=== PATIENT | female | born 1965 | race Caucasian/White ===

== ENCOUNTER 2016-07-16 17:57 | Inpatient (IN) | payer MEDICAID ==
[~2016-07-16] VITALS: Ht 170.2 cm; Wt 102.1 kg
[~2016-07-16 17:57] MED LIST: ASEN5TAB6 SL; HYDR25TA PO; PANT40TA25 PO
[2016-07-16 19:16] LABS: BASOPHILS % (AUTO) 0.3 % (0.0-2.0); EOSINOPHILS % (AUTO) 0.6 % (1.0-6.0); HEMATOCRIT 45.4 % (36-46); LYMPHOCYTES # (AUTO) 1.6 K/uL (1.0-4.8); LYMPHOCYTES % (AUTO) 22.2 % (22.0-44.0); MEAN CORPUSCULAR HEMOGLOBIN 30.2 pg (26.0-34.0); MEAN CORPUSCULAR VOLUME 92 fL (80-100); MONOCYTES # (AUTO) 0.3 K/uL (0.1-1.0); MONOCYTES % (AUTO) 3.7 % (2.0-9.0); NEUTROPHILS # (AUTO) 5.1 K/uL (1.8-7.7); NEUTROPHILS % (AUTO) 73.2 % (40.0-70.0); PLATELET COUNT (AUTO) 284 K/uL (150-450); RED BLOOD CELL COUNT(AUTO) 4.96 MIL/uL (4.00-5.20)
[2016-07-16 19:37] LABS: ALANINE AMINOTRANSFERASE 25 U/L (12-78); ALBUMIN 4.2 g/dL (3.4-5.0); ANION GAP 14 mmol/L (8-16); ASPARTATE AMINOTRANSFERASE 13 U/L (15-37); BILIRUBIN,TOTAL 0.4 mg/dL (0.1-1.0); CALCIUM, TOTAL 9.5 mg/dL (8.8-10.5); CARBON DIOXIDE 24 mmol/L (22-29); CHLORIDE 104 mmol/L (98-107); CREATININE 1.07 mg/dL (0.60-1.30); GLOMERULAR FILTR. RATE CALC 54 mL/min (>60); POTASSIUM 3.5 mmol/L (3.5-5.1); SODIUM SERUM 142 mmol/L (136-145); UREA NITROGEN, BLOOD 19 mg/dL (7-18)
[2016-07-16] MEDS ORDERED: LORazepam 2 MG TABLET PO ONE (20:15)
[2016-07-16] MEDS ORDERED: HALOPERIDOL 5 MG TABLET PO ONE (20:15)
[2016-07-16] MEDS ORDERED: DiphenhydrAMINE HCL 25 MG CAPSULE PO ONE (20:15)
[2016-07-16 23:00] VITALS: BP 140/67
[2016-07-16] MEDS ORDERED: ZOLPIDEM TARTRATE 10 MG TABLET PO PRN (23:30)
[2016-07-16] MEDS ORDERED: HALOPERIDOL 5 MG TABLET PO PRN (23:30)
[2016-07-17 01:34] VITALS: BP 110/90
[2016-07-17 01:51] LABS: ADD UA MICROSCOPIC YES; APPEARANCE,URINE TURBID (CLEAR); GLUCOSE, URINE (UA) 100 mg/dL (NEGATIVE); KETONES,URINE NEGATIVE (NEGATIVE); LEUKOCYTE ESTERASE ,URINE TRACE (NEGATIVE); OCCULT BLOOD,URINE NEGATIVE (NEGATIVE); PROTEIN,URINE TRACE (NEGATIVE)
[2016-07-17 02:42] LABS: RBC,URINE 0-2 /HPF (0-2)
[2016-07-17 02:43] LABS: AMORPHOUS SEDIMENT,UR Moderate /LPF (None Seen); WBC,URINE 0-2 /HPF (0-5)
[2016-07-17 09:17] VITALS: BP 144/66
[2016-07-17 17:13] VITALS: BP 137/90
[2016-07-17] MEDS: RisperiDONE 1 MG TABLET PO SCH (18:23)
[2016-07-17] MEDS ORDERED: ALBUTEROL SULFATE HFA 90 MCG/PUFF 8 GM INHALER IH PRN (23:00)
[2016-07-17] MEDS ORDERED: ACETAMINOPHEN 325 MG TABLET PO PRN (23:00)
[2016-07-18 06:54] LABS: HEMOGLOBIN A1C 5.6 % (4.5-6.2)
[2016-07-18 07:01] LABS: CHOL/HDL RATIO 5.7 (3.9-5.7); THYROID STIMULATING HORMONE 1.49 uIU/mL (0.36-3.74)
[2016-07-18] MEDS: CIPROFLOXACIN HCL 500 MG TABLET PO SCH ×2 (08:57→16:19)
[2016-07-18] MEDS: RisperiDONE 1 MG TABLET PO SCH ×2 (08:58→16:20)
[2016-07-18] MEDS: OMEPRAZOLE 20 MG CAPSULE PO SCH (08:58)
[2016-07-18 09:49] VITALS: BP 147/85
[2016-07-18] MEDS: LORazepam 2 MG TABLET PO PRN (11:15)
[2016-07-18 16:19] VITALS: BP 131/82
[2016-07-18 17:19] VITALS: BP 129/78
[2016-07-18 21:52] VITALS: BP 137/81
[2016-07-19] MEDS: DICYCLOMINE HCL 20 MG TABLET PO SCH ×2 (08:43→12:30)
[2016-07-19] MEDS: CIPROFLOXACIN HCL 500 MG TABLET PO SCH (08:43)
[2016-07-19] MEDS: OMEPRAZOLE 20 MG CAPSULE PO SCH ×2 (08:44→09:00)
[2016-07-19] MEDS: RisperiDONE 1 MG TABLET PO SCH (08:44)
[2016-07-19 08:49] VITALS: BP 130/83
[2016-07-19] MEDS ORDERED: PANTOPRAZOLE SODIUM 40 MG DR TABLET PO SCH (09:00)
[2016-07-19] MEDS ORDERED: LISINOPRIL 20 MG TABLET PO SCH (09:00)
[2016-07-19] MEDS ORDERED: HYDROCHLOROTHIAZIDE 25 MG TABLET PO SCH (09:00)
[2016-07-19] MEDS: LORazepam 2 MG TABLET PO PRN (09:20)
[2016-07-19] MEDS ORDERED: LISI-662 PO (10:39)
[2016-07-19] MEDS ORDERED: DICY20 PO (10:39)
[2016-07-19] MEDS ORDERED: CIPR-278 PO (10:39)
[2016-07-19] MEDS ORDERED: RISP1 PO (10:40)
[2016-07-19] MEDS ORDERED: OMEP20 PO (10:43)
== END 2016-07-19 12:45 | disposition home or self-care (01) | DRG 753 ==
LOC: EMS 18:01 → 3EI 20:30
PROVIDERS: ADMIT Psychiatry & Neurology Psychiatry; ATTEND Psychiatry & Neurology Psychiatry
DX: F31.9 Bipolar disorder, unspecified (principal); N39.0 Urinary tract infection, site not specified; I10 Essential (primary) hypertension; K21.9 Gastro-esophageal reflux disease without esophagitis; E78.5 Hyperlipidemia, unspecified; J45.909 Unspecified asthma, uncomplicated; M79.7 Fibromyalgia; F10.10 Alcohol abuse, uncomplicated; F19.10 Other psychoactive substance abuse, uncomplicated; F22 Delusional disorders; F43.10 Post-traumatic stress disorder, unspecified; G47.30 Sleep apnea, unspecified; F12.90 Cannabis use, unspecified, uncomplicated; Z53.29 Procedure and treatment not carried out because of patient's decision for other reasons; Z71.51 Drug abuse counseling and surveillance of drug abuser; Z71.41 Alcohol abuse counseling and surveillance of alcoholic; Z88.8 Allergy status to other drugs, medicaments and biological substances; Z90.49 Acquired absence of other specified parts of digestive tract
CPT/HCPCS: 83036; 84443; 99285; G0480

== ENCOUNTER 2016-12-21 12:41 | Inpatient (IN) | payer MEDICAID, OTHER ==
[~2016-12-21] VITALS: Ht 170.2 cm; Wt 114.7 kg
[~2016-12-21 12:41] MED LIST changes: -ASEN5TAB6 SL; +CIPR-278 PO; +DICY20 PO; +LISI-662 PO; +OMEP20 PO; -PANT40TA25 PO; +RISP1 PO
[2016-12-21] MEDS ORDERED: ASEN5TAB6 SL (12:48)
[2016-12-21] MEDS ORDERED: DiphenhydrAMINE HCL 25 MG CAPSULE PO ONE (13:15)
[2016-12-21] MEDS ORDERED: HALOPERIDOL 5 MG TABLET PO ONE (13:15)
[2016-12-21] MEDS ORDERED: LORazepam 2 MG TABLET PO ONE (13:15)
[2016-12-21] MEDS ORDERED: ZOLPIDEM TARTRATE 10 MG TABLET PO PRN (14:15)
[2016-12-21] MEDS ORDERED: DiphenhydrAMINE HCL 50 MG/ML VIAL IM ONE (16:00)
[2016-12-21] MEDS ORDERED: LORazepam 2 MG/ML VIAL IM ONE (16:00)
[2016-12-21] MEDS ORDERED: HALOPERIDOL LACTATE 5 MG/ML VIAL IM ONE (16:00)
[2016-12-21 16:02] LABS: BASOPHILS % (AUTO) 1.2 % (0.0-2.0); EOSINOPHILS % (AUTO) 1.2 % (1.0-6.0); HEMATOCRIT 40.2 % (36-46); HEMOGLOBIN 13.9 g/dL (12.0-16.0); LYMPHOCYTES # (AUTO) 2.6 K/uL (1.0-4.8); LYMPHOCYTES % (AUTO) 35.7 % (22.0-44.0); MEAN CORPUSCULAR HEMOGLOBIN 31.7 pg (26.0-34.0); MEAN CORPUSCULAR HGB CONC 34.7 G/dL (31.0-37.0); MEAN CORPUSCULAR VOLUME 92 fL (80-100); MONOCYTES # (AUTO) 0.4 K/uL (0.1-1.0); NEUTROPHILS # (AUTO) 4.1 K/uL (1.8-7.7); NEUTROPHILS % (AUTO) 56.9 % (40.0-70.0); PLATELET COUNT (AUTO) 278 K/uL (150-450); RED BLOOD CELL COUNT(AUTO) 4.39 MIL/uL (4.00-5.20); RED CELL DISTRIBUTION WIDTH 13.3 % (11.5-14.5); WHITE BLOOD COUNT (AUTO) 7.2 K/uL (4.5-11.0)
[2016-12-21 16:04] LABS: ANION GAP 10 mmol/L (8-16); CALCIUM, TOTAL 9.3 mg/dL (8.8-10.5); CARBON DIOXIDE 25 mmol/L (22-29); CHLORIDE 106 mmol/L (98-107); CREATININE 1.18 mg/dL (0.60-1.30); GLOMERULAR FILTR. RATE CALC 48 mL/min (>60); POTASSIUM 4.1 mmol/L (3.5-5.1); SODIUM SERUM 141 mmol/L (136-145); UREA NITROGEN, BLOOD 28 mg/dL (7-18)
[2016-12-21 16:11] LABS: ALANINE AMINOTRANSFERASE 24 U/L (12-78); ALBUMIN 4.4 g/dL (3.4-5.0); ASPARTATE AMINOTRANSFERASE 16 U/L (15-37); BILIRUBIN,TOTAL 0.2 mg/dL (0.1-1.0); TOTAL PROTEIN, SERUM 7.6 g/dL (6.4-8.2)
[2016-12-22 04:37] LABS: CHOL/HDL RATIO 5.4 (3.9-5.7)
[2016-12-22] MEDS: LORazepam 2 MG TABLET PO PRN (20:58)
[2016-12-22] MEDS: HALOPERIDOL 5 MG TABLET PO PRN (20:58)
[2016-12-22 21:40] VITALS: BP 147/98
[2016-12-23] MEDS: GEMFIBROZIL 600 MG TABLET PO SCH ×2 (06:45→17:00)
[2016-12-23] MEDS: LISINOPRIL 20 MG TABLET PO SCH (08:50)
[2016-12-23] MEDS: HYDROCHLOROTHIAZIDE 25 MG TABLET PO SCH (08:51)
[2016-12-23] MEDS: DICYCLOMINE HCL 20 MG TABLET PO SCH ×4 (08:51→21:00)
[2016-12-23] MEDS: OMEPRAZOLE 20 MG CAPSULE PO SCH (08:52)
[2016-12-23 10:39] VITALS: BP 147/88
[2016-12-23] MEDS: RisperiDONE 1 MG TABLET PO SCH (18:12)
[2016-12-24] MEDS ORDERED: PNEUMOCOCCAL VACCINE POLYVALENT 0.5 ML VIAL [PPSV23] IM ONE (00:30)
[2016-12-24] MEDS: GEMFIBROZIL 600 MG TABLET PO SCH ×2 (07:04→17:28)
[2016-12-24 08:00] VITALS: BP 139/87
[2016-12-24] MEDS: LISINOPRIL 20 MG TABLET PO SCH (10:01)
[2016-12-24] MEDS: HYDROCHLOROTHIAZIDE 25 MG TABLET PO SCH (10:01)
[2016-12-24] MEDS: OMEPRAZOLE 20 MG CAPSULE PO SCH (10:01)
[2016-12-24] MEDS: RisperiDONE 1 MG TABLET PO SCH ×2 (10:01→17:28)
[2016-12-24] MEDS: DICYCLOMINE HCL 20 MG TABLET PO SCH ×4 (10:02→20:18)
[2016-12-24] MEDS ORDERED: ACETAMINOPHEN 325 MG TABLET PO PRN (12:00)
[2016-12-24] MEDS: HALOPERIDOL 5 MG TABLET PO PRN ×2 (12:03→18:55)
[2016-12-24] MEDS: LORazepam 2 MG TABLET PO PRN ×2 (12:04→18:55)
[2016-12-24 16:38] VITALS: BP 134/92
[2016-12-25] MEDS: GEMFIBROZIL 600 MG TABLET PO SCH ×2 (06:57→16:03)
[2016-12-25 08:14] VITALS: BP 133/93
[2016-12-25] MEDS: DICYCLOMINE HCL 20 MG TABLET PO SCH ×4 (08:45→20:57)
[2016-12-25] MEDS: RisperiDONE 1 MG TABLET PO SCH ×2 (08:45→16:02)
[2016-12-25] MEDS: OMEPRAZOLE 20 MG CAPSULE PO SCH (08:45)
[2016-12-25] MEDS: LISINOPRIL 20 MG TABLET PO SCH (08:45)
[2016-12-25] MEDS: HYDROCHLOROTHIAZIDE 25 MG TABLET PO SCH (08:46)
[2016-12-25] MEDS: LORazepam 2 MG TABLET PO PRN (16:00)
[2016-12-25 16:03] VITALS: BP 115/81
[2016-12-26] MEDS: GEMFIBROZIL 600 MG TABLET PO SCH (06:41)
[2016-12-26] MEDS: OMEPRAZOLE 20 MG CAPSULE PO SCH (08:05)
[2016-12-26] MEDS: LISINOPRIL 20 MG TABLET PO SCH (08:05)
[2016-12-26] MEDS: DICYCLOMINE HCL 20 MG TABLET PO SCH ×2 (08:05→12:23)
[2016-12-26] MEDS: HYDROCHLOROTHIAZIDE 25 MG TABLET PO SCH (08:05)
[2016-12-26] MEDS: RisperiDONE 1 MG TABLET PO SCH (08:05)
[2016-12-26 08:08] VITALS: BP 135/93
[2016-12-26] MEDS ORDERED: GEMF600T3 PO (11:38)
== END 2016-12-26 13:35 | disposition left against medical advice (07) | DRG 750 ==
LOC: EEVIPCON 12:43 → EMS 12:43 → 3EC 12-22 19:56 → EMS 12-22 21:27
PROVIDERS: ADMIT Psychiatry & Neurology Child & Adolescent Psychiatry; ATTEND Psychiatry & Neurology Child & Adolescent Psychiatry
DX: F25.0 Schizoaffective disorder, bipolar type (principal); N17.9 Acute kidney failure, unspecified; R45.850 Homicidal ideations; Z91.19 Patient's noncompliance with other medical treatment and regimen; I10 Essential (primary) hypertension; F43.10 Post-traumatic stress disorder, unspecified; G47.33 Obstructive sleep apnea (adult) (pediatric); J45.909 Unspecified asthma, uncomplicated; K21.9 Gastro-esophageal reflux disease without esophagitis; M79.7 Fibromyalgia; Z87.440 Personal history of urinary (tract) infections; Z88.8 Allergy status to other drugs, medicaments and biological substances; Z28.21 Immunization not carried out because of patient refusal
CPT/HCPCS: 94660; 99285; G0480

== ENCOUNTER 2017-10-20 16:08 | Inpatient (IN) | payer MEDICAID, OTHER ==
[~2017-10-20] VITALS: Ht 170.2 cm; Wt 261.5 kg
[~2017-10-20 16:08] MED LIST changes: -CIPR-278 PO; +GEMF600T3 PO
[2017-10-20] MEDS ORDERED: ASEN5TAB6 SL (16:12)
[2017-10-20] MEDS ORDERED: OMEP10 PO (16:12)
[2017-10-20 16:23] LABS: GLUCOSE,POINT OF CARE 140 MG/DL (70-110)
[2017-10-20 16:38] LABS: BASOPHILS % (AUTO) 0.6 % (0.0-2.0); EOSINOPHILS % (AUTO) 0.3 % (1.0-6.0); HEMATOCRIT 46.5 % (36-46); HEMOGLOBIN 15.7 g/dL (12.0-16.0); LYMPHOCYTES # (AUTO) 1.5 K/uL (1.0-4.8); LYMPHOCYTES % (AUTO) 18.5 % (22.0-44.0); MEAN CORPUSCULAR HEMOGLOBIN 30.7 pg (26.0-34.0); MEAN CORPUSCULAR HGB CONC 33.9 G/dL (31.0-37.0); MEAN CORPUSCULAR VOLUME 91 fL (80-100); MONOCYTES # (AUTO) 0.2 K/uL (0.1-1.0); NEUTROPHILS # (AUTO) 6.2 K/uL (1.8-7.7); NEUTROPHILS % (AUTO) 77.6 % (40.0-70.0); PLATELET COUNT (AUTO) 370 K/uL (150-450); RED BLOOD CELL COUNT(AUTO) 5.12 MIL/uL (4.00-5.20); RED CELL DISTRIBUTION WIDTH 13.9 % (11.5-14.5)
[2017-10-20 16:52] LABS: ANION GAP 14 mmol/L (8-16); CALCIUM, TOTAL 9.8 mg/dL (8.8-10.5); CARBON DIOXIDE 22 mmol/L (22-29); CHLORIDE 101 mmol/L (98-107); CREATININE 1.29 mg/dL (0.60-1.30); GLOMERULAR FILTR. RATE CALC 43 mL/min (>60); GLUCOSE,RANDOM 200 mg/dL (70-110); POTASSIUM 3.6 mmol/L (3.5-5.1); SODIUM SERUM 137 mmol/L (136-145); UREA NITROGEN, BLOOD 21 mg/dL (7-18)
[2017-10-20 16:58] LABS: ALANINE AMINOTRANSFERASE 41 U/L (12-78); ALBUMIN 4.5 g/dL (3.4-5.0); ALKALINE PHOSPHATASE 94 U/L (46-116); ASPARTATE AMINOTRANSFERASE 22 U/L (15-37); BILIRUBIN,TOTAL 0.4 mg/dL (0.1-1.0); TOTAL PROTEIN, SERUM 8.5 g/dL (6.4-8.2)
[2017-10-20] MEDS ORDERED: HALOPERIDOL 5 MG TABLET PO PRN (17:45)
[2017-10-20] MEDS ORDERED: ZOLPIDEM TARTRATE 10 MG TABLET PO PRN (17:45)
[2017-10-20] MEDS ORDERED: ACETAMINOPHEN 325 MG TABLET PO ONE (18:15)
[2017-10-20 18:19] LABS: APPEARANCE,URINE CLEAR (CLEAR); BILIRUBIN,URINE NEGATIVE (NEGATIVE); GLUCOSE, URINE (UA) NEGATIVE (NEGATIVE); KETONES,URINE NEGATIVE (NEGATIVE); LEUKOCYTE ESTERASE ,URINE NEGATIVE (NEGATIVE); NITRATE,URINE NEGATIVE (NEGATIVE); OCCULT BLOOD,URINE NEGATIVE (NEGATIVE); PROTEIN,URINE POS 1+ (NEGATIVE); UROBILINOGEN,URINE 0.2 mg/dL (<=1.0)
[2017-10-20 18:22] LABS: AMPHET/METH SCREEN,URINE POSITIVE (NEGATIVE); BARBITURATE SCREEN, URINE NEGATIVE (NEGATIVE); BENZODIAZEPINES SCREEN,URINE NEGATIVE (NEGATIVE); CANNABINOID SCREEN,URINE POSITIVE (NEGATIVE); COCAINE SCREEN,URINE NEGATIVE (NEGATIVE); METHADONE SCREEN, URINE NEGATIVE (NEGATIVE); OPIATE SCREEN,URINE NEGATIVE (NEGATIVE)
[2017-10-20 18:24] LABS: PHENCYCLIDINE SCREEN,URINE NEGATIVE (NEGATIVE)
[2017-10-20 18:29] LABS: BACTERIA,URINE Few /HPF (None Seen); RBC,URINE 0-2 /HPF (0-2); SQUAMOUS EPITHELIAL CELL,UR Moderate /LPF (None Seen)
[2017-10-20 18:30] LABS: HYALINE CASTS, URINE 0-2 /LPF (None Seen)
[2017-10-20] MEDS ORDERED: CEPHALEXIN MONOHYDRATE 500 MG CAPSULE PO ONE (19:00)
[2017-10-20] MEDS: LORazepam 2 MG TABLET PO PRN (19:24)
[2017-10-20] MEDS: ASENAPINE 5 MG SUBLINGUAL TABLET SL SCH (21:21)
[2017-10-21 08:47] LABS: HEMOGLOBIN A1C 5.6 % (4.5-6.2)
[2017-10-21 09:02] LABS: CHOL/HDL RATIO 6.2 (3.9-5.7); FREE T4 (FREE THYROXINE) 0.82 ng/dL (0.76-1.46); THYROID STIMULATING HORMONE 1.81 uIU/mL (0.36-3.74)
[2017-10-21] MEDS: ASENAPINE 5 MG SUBLINGUAL TABLET SL SCH ×2 (09:09→21:10)
[2017-10-21] MEDS: LORazepam 2 MG TABLET PO PRN (14:22)
[2017-10-21] MEDS ORDERED: MAG HYDROX/AL HYDROX/SIMETH ES 30 ML SUSPENSION UDCUP PO PRN (15:15)
[2017-10-21] MEDS ORDERED: PETROLATUM,WHITE 71 GM JELLY TP PRN (15:15)
[2017-10-21] MEDS ORDERED: ONDANSETRON HCL 4 MG TABLET PO PRN (15:15)
[2017-10-21] MEDS ORDERED: CloNIDine HCL 0.1 MG TABLET PO PRN (15:15)
[2017-10-21] MEDS ORDERED: ALBUTEROL SULFATE HFA 90 MCG/PUFF 8 GM INHALER IH PRN (15:15)
[2017-10-21] MEDS ORDERED: ACETAMINOPHEN 325 MG TABLET PO PRN (15:15)
[2017-10-21] MEDS ORDERED: MAGNESIUM HYDROXIDE SUSPENSION 30 ML UDCUP PO PRN (15:15)
[2017-10-21] MEDS ORDERED: LOPERAMIDE HCL 2 MG CAPSULE PO PRN (15:15)
[2017-10-21] MEDS ORDERED: DOCUSATE SODIUM 100 MG CAPSULE PO PRN (15:15)
[2017-10-21] MEDS ORDERED: BACITRACIN 0.9 GM PACKET OINTMENT TP ONE (16:15)
[2017-10-21 16:58] VITALS: BP 122/91
[2017-10-21 18:02] VITALS: BP 133/62
[2017-10-22] MEDS: NICOTINE 14 MG/24 HOUR PATCH TD SCH (09:00)
[2017-10-22] MEDS: ASENAPINE 5 MG SUBLINGUAL TABLET SL SCH ×2 (09:00→20:57)
[2017-10-22] MEDS: IBUPROFEN 400 MG TABLET PO PRN (10:17)
[2017-10-22] MEDS: HYDROCHLOROTHIAZIDE 25 MG TABLET PO SCH (11:09)
[2017-10-22 11:17] VITALS: BP 131/69
[2017-10-22] MEDS: CEPHALEXIN MONOHYDRATE 500 MG CAPSULE PO SCH ×2 (14:14→16:17)
[2017-10-22] MEDS: SULFAMETHOX/TRIMETH DS 800-160 MG/TABLET PO SCH (16:17)
[2017-10-22 18:00] VITALS: BP 119/63
[2017-10-23 08:20] VITALS: BP 140/70
[2017-10-23] MEDS: IBUPROFEN 400 MG TABLET PO PRN ×2 (08:22→16:31)
[2017-10-23] MEDS: SULFAMETHOX/TRIMETH DS 800-160 MG/TABLET PO SCH ×2 (08:22→16:31)
[2017-10-23] MEDS: CEPHALEXIN MONOHYDRATE 500 MG CAPSULE PO SCH ×3 (08:22→16:31)
[2017-10-23] MEDS: MULTIVITAMINS WITH MINERALS, THERAPEUTIC TABLET PO SCH (08:22)
[2017-10-23] MEDS: HYDROCHLOROTHIAZIDE 25 MG TABLET PO SCH (08:22)
[2017-10-23] MEDS: NICOTINE 14 MG/24 HOUR PATCH TD SCH (09:00)
[2017-10-23] MEDS: ASENAPINE 5 MG SUBLINGUAL TABLET SL SCH ×2 (09:00→20:11)
[2017-10-23 09:27] VITALS: BP 140/70
[2017-10-23 16:31] VITALS: BP 124/92
[2017-10-24 08:55] VITALS: BP 143/78
[2017-10-24] MEDS: IBUPROFEN 400 MG TABLET PO PRN (08:58)
[2017-10-24] MEDS: CEPHALEXIN MONOHYDRATE 500 MG CAPSULE PO SCH ×2 (08:59→14:01)
[2017-10-24] MEDS: HYDROCHLOROTHIAZIDE 25 MG TABLET PO SCH (08:59)
[2017-10-24] MEDS: MULTIVITAMINS WITH MINERALS, THERAPEUTIC TABLET PO SCH (08:59)
[2017-10-24] MEDS: SULFAMETHOX/TRIMETH DS 800-160 MG/TABLET PO SCH (08:59)
[2017-10-24] MEDS: NICOTINE 14 MG/24 HOUR PATCH TD SCH (09:00)
[2017-10-24] MEDS: ASENAPINE 5 MG SUBLINGUAL TABLET SL SCH (09:00)
[2017-10-24] MEDS ORDERED: MULT-723 PO (12:53)
[2017-10-24] MEDS ORDERED: CEPH500 PO (12:53)
[2017-10-24] MEDS ORDERED: BACTDSB PO (12:53)
== END 2017-10-24 15:00 | disposition home or self-care (01) | DRG 750 ==
LOC: EMS 16:09 → 3EI 10-21 16:21 → EMS 10-21 16:43
PROC: 5A09357 Assistance with Respiratory Ventilation, Less than 24 Consecutive Hours, Continuous Positive Airway Pressure (ICD-10-PCS; principal; 2017-10-23)
DX: F25.1 Schizoaffective disorder, depressive type (principal); R45.851 Suicidal ideations; Z68.45 Body mass index [BMI] 70 or greater, adult; S91.309A Unspecified open wound, unspecified foot, initial encounter; I10 Essential (primary) hypertension; M79.7 Fibromyalgia; G47.33 Obstructive sleep apnea (adult) (pediatric); E78.5 Hyperlipidemia, unspecified; E66.9 Obesity, unspecified; K21.9 Gastro-esophageal reflux disease without esophagitis; F43.10 Post-traumatic stress disorder, unspecified; F12.90 Cannabis use, unspecified, uncomplicated; L98.9 Disorder of the skin and subcutaneous tissue, unspecified; X58.XXXA Exposure to other specified factors, initial encounter; Z79.899 Other long term (current) drug therapy; Z71.51 Drug abuse counseling and surveillance of drug abuser; Z90.49 Acquired absence of other specified parts of digestive tract; Z98.891 History of uterine scar from previous surgery; Y93.89 Activity, other specified; Y92.89 Other specified places as the place of occurrence of the external cause; Z91.5 Personal history of self-harm; Z88.8 Allergy status to other drugs, medicaments and biological substances; Y99.8 Other external cause status
CPT/HCPCS: 83036; 84439; 84443; 94660; 99285; G0480

== ENCOUNTER 2022-04-02 13:25 | Emergency (ER) | payer MEDICAID, OTHER ==
[~2022-04-02] VITALS: Ht 165.1 cm; Wt 136.5 kg
[~2022-04-02 13:25] MED LIST changes: +ASEN5TAB11 SL; +BACTDSB PO; +CEPH-558 PO; -DICY20 PO; -GEMF600T3 PO; -HYDR25TA PO; +HYDR25TA2 PO; -LISI-662 PO; +MULT-723 PO; -OMEP20 PO; -RISP1 PO
[2022-04-02 13:30] VITALS: BP 146/91
== END 2022-04-02 16:41 | disposition left against medical advice (07) ==
LOC: EMS 13:46
DX: F25.9 Schizoaffective disorder, unspecified (principal); R10.9 Unspecified abdominal pain; K59.00 Constipation, unspecified; R45.851 Suicidal ideations; F31.9 Bipolar disorder, unspecified; M79.7 Fibromyalgia; F12.90 Cannabis use, unspecified, uncomplicated; G47.30 Sleep apnea, unspecified; Z90.49 Acquired absence of other specified parts of digestive tract; Z98.890 Other specified postprocedural states; Z88.8 Allergy status to other drugs, medicaments and biological substances
CPT/HCPCS: 99284

== ENCOUNTER 2022-11-15 09:17 | Emergency (ER) | payer OTHER ==
[~2022-11-15] VITALS: Ht 170.2 cm; Wt 113.6 kg
[2022-11-15] MEDS ORDERED: PANT40TA54 PO (09:28)
[2022-11-15] MEDS ORDERED: CHOL25TA4 PO (09:28)
[2022-11-15] MEDS ORDERED: LISI-658 PO (09:28)
[2022-11-15 09:30] VITALS: TEMP 98.5
[2022-11-15] MEDS ORDERED: KETOROLAC TROMETHAMINE 60 MG/2 ML VIAL IM ONE (10:00)
[2022-11-15] MEDS ORDERED: METHOCARBAMOL 500 MG TABLET PO ONE (10:00)
[2022-11-15] MEDS ORDERED: LIDOCAINE 5% TRANSDERMAL PATCH TD ONE ×2 (10:15→11:30)
[2022-11-15] MEDS ORDERED: IBUP-1492 PO (10:16)
[2022-11-15] MEDS ORDERED: LIDO700A15 TP (10:17)
[2022-11-15 11:29] VITALS: BP 154/97; PULSE 66; RESP 18
== END 2022-11-15 11:28 | disposition home or self-care (01) ==
LOC: EMS 09:26
DX: S30.0XXA Contusion of lower back and pelvis, initial encounter (principal); M54.50 Low back pain, unspecified; F31.9 Bipolar disorder, unspecified; M79.7 Fibromyalgia; I10 Essential (primary) hypertension; F20.9 Schizophrenia, unspecified; F12.90 Cannabis use, unspecified, uncomplicated; Z90.49 Acquired absence of other specified parts of digestive tract; Z98.890 Other specified postprocedural states; Z88.8 Allergy status to other drugs, medicaments and biological substances; W19.XXXA Unspecified fall, initial encounter; Y93.89 Activity, other specified; Y92.89 Other specified places as the place of occurrence of the external cause; Y99.8 Other external cause status
CPT/HCPCS: 99284; 73521; 96372; J1885